=== PATIENT | female | born 1960 | race Caucasian/White ===

== ENCOUNTER 2020-06-02 11:06 | Outpatient (CLI) | payer OTHER | END 2020-06-02 11:13 | disposition home or self-care (01) | LOC: RAD 11:06 | PROVIDERS: ATTEND Colon & Rectal Surgery | DX: K59.09 Other constipation (principal) ==

== ENCOUNTER 2020-07-03 10:30 | Inpatient (IN) | payer OTHER ==
[~2020-07-03] VITALS: Ht 167.6 cm; Wt 84.8 kg
[2020-07-03] MEDS ORDERED: SYNTHROID50 MCG PO (13:14)
[2020-07-03] MEDS ORDERED: [UNRECOGNIZED DRUG - OTHER] PO (13:15)
[2020-07-03] MEDS ORDERED: PRISTIQ ER50 MG PO (13:15)
[2020-07-03] MEDS ORDERED: AMBIEN10 MG PO (13:16)
[2020-07-03] MEDS ORDERED: CLONAZEPAM2 MG PO (13:16)
[2020-07-03] MEDS ORDERED: PREMAR VAG (13:17)
[2020-07-03] MEDS ORDERED: DEXILANT60 MG PO (13:17)
[2020-07-03] MEDS ORDERED: NASAL MIST126 ML (13:18)
[2020-07-03] MEDS ORDERED: RELAFEN PO (13:18)
[2020-07-03] MEDS ORDERED: GABAPENT PO (13:20)
[2020-07-09] MEDS ORDERED: GABAPENTIN400 MG (08:42)
[2020-07-09] MEDS ORDERED: NABUMETONE750 MG (08:43)
[2020-07-09] MEDS ORDERED: RINVOQ ER15 MG (08:43)
[2020-07-09] MEDS ORDERED: MAXIMUM D3325 MCG (08:44)
[2020-07-09] MEDS ORDERED: ZOLPIDEM TART12.5 MG (08:50)
[2020-07-09] MEDS ORDERED: PREMARIN30 GM (08:52)
[2020-07-13] MEDS ORDERED: PRILOSEC OTC20 MG PO (11:45)
[2020-07-13] MEDS ORDERED: PERCOCET 5-3251 EACH PO (11:45)
== END 2020-07-13 13:52 | disposition home or self-care (01) | DRG 331 ==
LOC: O/R 07-09 06:00 → SURH 07-09 06:00
PROVIDERS: ADMIT Colon & Rectal Surgery; ATTEND Colon & Rectal Surgery
PROC: 0DBN4ZZ Excision of Sigmoid Colon, Percutaneous Endoscopic Approach (ICD-10-PCS; 2020-07-09)
PROC: 0DBP4ZZ Excision of Rectum, Percutaneous Endoscopic Approach (ICD-10-PCS; principal; 2020-07-09 07:00)
DX: K63.89 Other specified diseases of intestine (principal); K62.89 Other specified diseases of anus and rectum; K59.02 Outlet dysfunction constipation; K59.09 Other constipation; K57.30 Diverticulosis of large intestine without perforation or abscess without bleeding; E03.9 Hypothyroidism, unspecified

== ENCOUNTER 2021-04-03 07:05 | Day surgery (SDC) | payer OTHER ==
[~2021-04-03 07:05] MED LIST: AMBIEN10 MG PO; CLONAZEPAM2 MG PO; DEXILANT60 MG PO; GABAPENT PO; GABAPENTIN400 MG; MAXIMUM D3325 MCG; NABUMETONE750 MG; NASAL MIST126 ML; PERCOCET 5-3251 EACH PO; PREMAR VAG; PREMARIN30 GM; PRILOSEC OTC20 MG PO; PRISTIQ ER50 MG PO; RELAFEN PO; RINVOQ ER15 MG; SYNTHROID50 MCG PO; ZOLPIDEM TART12.5 MG; [UNRECOGNIZED DRUG - OTHER] PO
== END 2021-04-03 13:40 | disposition home or self-care (01) ==
LOC: CIR.AMB 07:05
PROVIDERS: ATTEND Colon & Rectal Surgery
DX: K62.89 Other specified diseases of anus and rectum (principal); K64.0 First degree hemorrhoids; Z20.822 Contact with and (suspected) exposure to COVID-19

== ENCOUNTER 2021-11-11 07:36 | Day surgery (SDC) | payer OTHER ==
[~2021-11-11 07:36] MED LIST changes: +LIPITOR20 MG PO; +PLAVIX75 MG PO
== END 2021-11-11 18:40 | disposition home or self-care (01) ==
LOC: CIR.AMB 07:36
PROVIDERS: ATTEND Colon & Rectal Surgery
DX: K62.1 Rectal polyp (principal); Z20.822 Contact with and (suspected) exposure to COVID-19; K57.30 Diverticulosis of large intestine without perforation or abscess without bleeding; K59.02 Outlet dysfunction constipation; J45.909 Unspecified asthma, uncomplicated; Z86.19 Personal history of other infectious and parasitic diseases; E87.8 Other disorders of electrolyte and fluid balance, not elsewhere classified; K64.1 Second degree hemorrhoids; E03.9 Hypothyroidism, unspecified; M79.7 Fibromyalgia; E66.9 Obesity, unspecified; Z79.02 Long term (current) use of antithrombotics/antiplatelets